=== PATIENT | male | born 1930 | race Caucasian/White ===

== ENCOUNTER 2018-08-29 09:11 | Emergency (ER) | payer MEDICARE ==
[2018-08-29 09:48] VITALS: BP 105/62
--- NOTE | 2018-08-29 10:12 | UC ---
General HPI - HPI Summary HPI Summary: found a spec of blood in L groin yesterday and today post shower. worried may be a tick from his cat that sleep with him. no fever and feels fine otherwise. - History of Current Complaint Chief Complaint: [employer] Stated Complaint: SKIN COMPLAINT Time Seen by Provider: 08/29/18 10:06 Hx Obtained From: Patient Pain Intensity: 0 Associated Signs & Symptoms: Negative: Fever - Allergy/Home Medications Allergies/Adverse Reactions: Allergies Allergy/AdvReac Type Severity Reaction Status Date / Time No Known Allergies Allergy Verified 08/29/18 09:36 Home Medications: Home Medications Aspirin EC TAB* [Ecotrin EC Low Dose 81 MG*] 1 tab DAILY 08/29/18 [History Confirmed 08/29/18] Blood Pressure Med 1 tab QAM 08/29/18 [History Confirmed 08/29/18] Cholesteral Med 1 tab QPM 08/29/18 [History Confirmed 08/29/18] Methotrexate TAB* 8 tab WEEKLY 08/29/18 [History Confirmed 08/29/18] Water Pill Med 1 tab DAILY 08/29/18 [History Confirmed 08/29/18] predniSONE TAB* [Deltasone 10 MG TAB*] 5 mg DAILY 08/29/18 [History Confirmed ] PMH/Surg Hx/FS Hx/Imm Hx - Additional Past Medical History Additional PMH: RA Endocrine History: Dyslipidemia Cardiovascular History: Hypertension - Surgical History Surgical History: Yes Surgery Procedure, Year, and Place: Gallbladder. Pacemaker - Family History Known Family History: Positive: Non-Contributory - Social History Occupation: Retired Alcohol Use: None Substance Use Type: None Smoking Status (MU): Never Smoked Tobacco - Immunization History Vaccination Up to Date: Yes Review of Systems All Other Systems Reviewed And Are Negative: Yes Constitutional: Positive: Negative Skin: Positive: Negative Eyes: Positive: Negative ENT: Positive: Negative Respiratory: Positive: Negative Cardiovascular: Positive: Negative Gastrointestinal: Positive: Negative Genitourinary: Positive: Negative Motor: Positive: Negative Neurovascular: Positive: Negative Musculoskeletal: Positive: Arthralgia - chronic-hx RA Neurological: Positive: Negative Psychological: Positive: Negative Physical Exam Triage Information Reviewed: Yes Appearance: Well-Appearing Vital Signs: Initial Vital Signs Temp 97.9 F 08/29/18 09:39 Pulse 68 08/29/18 09:39 Resp 16 08/29/18 09:39 BP 105/62 08/29/18 09:39 Pulse Ox 100 08/29/18 09:39 Vital Signs Reviewed: Yes Eyes: Positive: Conjunctiva Clear ENT: Positive: Normal ENT inspection Neck: Positive: Supple, Nontender Respiratory: Positive: Lungs clear, Normal breath sounds Cardiovascular: Positive: RRR Abdomen Description: Positive: Nontender, No Organomegaly, Soft, Other: - No inguinal adenopathy. Bowel Sounds: Positive: Present Neurological: Positive: Alert Psychological: Positive: Age Appropriate Behavior Skin Exam: Normal, Other - L groin crease has an oval rash with red border and central clearing with maceration c/w tinea. Course/Dx - Course Course Of Treatment: c/w fungal infection. no concern for secondary infection. - Differential Dx - Multi-Symptom Provider Diagnoses: Tinea cruris L groin Discharge - Sign-Out/Discharge Documenting (check all that apply): Patient Departure All imaging exams completed and their final reports reviewed: No Studies - Discharge Plan Condition: Stable Disposition: HOME Prescriptions: Nystatin TOP POWDER* 1 applic TOPICAL BID 30 Days #1 btl Patient Education Materials: Fam Itch (ED) Referrals: No Primary Care Phys,NOPCP [Primary Care Provider] - Additional Instructions: follow up [facility] in 7-10 days for recheck of sooner if worse. - Billing Disposition and Condition Condition: STABLE Disposition: Home
== END 2018-08-29 10:20 | disposition home or self-care (01) ==
LOC: UCCORT 09:11
DX: B35.6 Tinea cruris (principal); I10 Essential (primary) hypertension; Z79.899 Other long term (current) drug therapy; Z79.82 Long term (current) use of aspirin
CPT/HCPCS: 99202; G0463